=== PATIENT | male | born 1955 | race Caucasian/White ===

== ENCOUNTER 2017-04-25 21:54 | Inpatient (IN) | payer OTHER ==
[~2017-04-25] VITALS: Ht 177.8 cm; Wt 102.4 kg
[~2017-04-25 21:54] MED LIST: NEURONTIN100 MG PO; NORCO 10/3251 TABLET PO
[2017-04-26 10:46] VITALS: BP 145/76
[2017-04-26] MEDS ORDERED: OXYCODONE-APAP1 EACH PO (15:46)
[2017-04-26] MEDS ORDERED: DIAZEPAM10 MG PO (15:46)
[2017-04-26 20:01] VITALS: BP 128/83
[2017-04-26 23:28] VITALS: BP 100/68
[2017-04-27] VITALS (8 sets, daily range): BP systolic 94–107; BP diastolic 50–62
[2017-04-28 03:52] VITALS: BP 115/64
[2017-04-28 08:26] VITALS: BP 124/63
[2017-04-28 12:06] VITALS: BP 122/66
[2017-04-28 15:52] VITALS: BP 106/63
[2017-04-28 22:27] VITALS: BP 101/54
[2017-04-29 05:19] VITALS: BP 116/85
[2017-04-29 07:45] VITALS: BP 108/72
[2017-04-29 12:30] VITALS: BP 124/73
== END 2017-04-29 14:01 | disposition home or self-care (01) | DRG 460 ==
LOC: ENRESERV 21:54 → 2SOUTH 04-26 09:27 → ENRESERV 04-26 15:31 → 3EAST 04-26 19:35
PROC: 0SG00AJ Fusion of Lumbar Vertebral Joint with Interbody Fusion Device, Posterior Approach, Anterior Column, Open Approach (ICD-10-PCS; principal; 2017-04-26)
PROC: 01NB0ZZ Release Lumbar Nerve, Open Approach (ICD-10-PCS; 2017-04-26)
DX: M48.062 Spinal stenosis, lumbar region with neurogenic claudication (principal); Z98.1 Arthrodesis status; Z68.32 Body mass index [BMI] 32.0-32.9, adult
CPT/HCPCS: 72100; 76000; 86850; 86900; 86901; 93005; 95886; 95938; J0690; J1100; J1170; J1885; J1940; J2405; J2710; J3010; J3370; J3480